=== PATIENT | female | born 1975 | race African-American/Black ===

== ENCOUNTER 2021-02-21 10:49 | Emergency (ER) | payer BC ==
[~2021-02-21] VITALS: Ht 167.6 cm; Wt 65.0 kg
--- NOTE | 2021-02-21 15:03 | PHYS DOC ---
General Adult EDM: Chief Complaint: NAUSEA/VOMITING/DIARRHEA HPI: HPI: Patient is a 45 year old female patient here with generalized abdominal pain, nausea and vomiting. She denies constipation or diarrhea. She denies urinary symptoms. She denies fevers or chills. She reports mid low back pain. She denies any radiation of pain, numbness, tingling. She denies stool or bladder incontinence. She denies any fall, trauma, injury. She denies any focal abdominal pain. She denies hematemesis. She denies melena or hematochezia. She denies bowel habit changes. No previous abdominal surgeries. The back pain is worse with movement. The back pain seemed to worsen after retching and vomiting for prolonged periods of time, beginning this morning. She denies chest pain, cough, dyspnea. She is fully vaccinated against COVID-19. She denies any recent sick contacts, travel history, antibiotics. No previous history of bowel obstruction. No history of similar chronic symptoms. Review of Systems: Review of Systems: Constitutional: Denies fever or chills. [] Eyes: Denies change in visual acuity. [] HENT: Denies nasal congestion or sore throat. [] Respiratory: Denies cough or shortness of breath. [] Cardiovascular: Denies chest pain or edema. [] GI: Generalized abdominal pain, nausea, vomiting. Denies bowel habit changes, denies melena or hematochezia. Denies hematemesis. : Denies urinary symptoms. Musculoskeletal: Low back pain. Integument: Denies rash. [] Neurologic: Denies headache, focal weakness or sensory changes. [] Endocrine: Denies polyuria or polydipsia. [] Lymphatic: Denies swollen glands. [] Psychiatric: Denies depression or anxiety. [] Heart Score: C/O Chest Pain: No Risk Factors: Risk Factors: DM, Current or recent (<one month) smoker, HTN, HLP, family history of CAD, obesity. Risk Scores: Score 0 - 3: 2.5% MACE over next 6 weeks - Discharge Home Score 4 - 6: 20.3% MACE over next 6 weeks - Admit for Clinical Observation Score 7 - 10: 72.7% MACE over next 6 weeks - Early Invasive Strategies Physical Exam: PE: Constitutional: Well developed, well nourished, no acute distress, non-toxic appearance. [] HENT: Normocephalic, atraumatic, mucous membranes are moist Eyes: Sclera are nonicteric Neck: Normal range of motion, no tenderness, supple, no stridor. [] Cardiovascular:Heart rate regular rhythm, 2 radial and +2 posterior tibial pulses bilaterally, warm and well-perfused, no peripheral edema Lungs & Thorax: Bilateral breath sounds clear to auscultation [] Abdomen: Abdomen is soft, nondistended, nonfocally tender to palpation in the periumbilical area. Normal bowel sounds. No focal right lower quadrant or left lower quadrant tenderness. Mild voluntary guarding, no rebound tenderness. No palpable masses organomegaly. No right upper quadrant tenderness, negative Stephens's. No CVA tenderness. No flank or abdominal ecchymoses. Skin: Warm, dry, no erythema, no rash. No jaundice. Back: No tenderness, no CVA tenderness. [] Extremities: No tenderness, no cyanosis, no clubbing, ROM intact, no edema. [] Neurologic: Alert and oriented X 3, normal motor function, normal sensory function, no focal deficits noted. [] Psychologic: Affect normal, judgement normal, mood normal. [] EKG: EKG: [] Radiology/Procedures: Radiology/Procedures: IMAGING REPORT Signed PATIENT: CATY TOLBERTACCOUNT: [id number] : 1975 LOCATION: ER AGE: 45 SEX: F EXAM STATUS: REG ER ORD. PHYSICIAN: BONITA LÓPEZ DO REASON: abd pain, n/v PROCEDURE: CT ABD PELV W/ IV CONTRST ONLY Exam: CT of abdomen and pelvis with contrast INDICATION: Abdominal pain, nausea and vomiting TECHNIQUE: Sequential axial images through the abdomen and pelvis obtained follo wing the administration of 75 mL of Isovue-370 IV contrast. Sagittal and coronal reformatted images were reconstructed from the axial data and reviewed. Exposure: One or more of the following in the visualized dose reduction techniques were utilized for this examination: 1. Automated exposure control 2. Adjustment of the MA and/or KV according to patient size 3. Use of iterative of reconstructive technique Comparisons: None FINDINGS: Heart size is normal. No pericardial effusion. Strandy opacities the dependent portion lungs likely representing atelectasis. No pleural effusion. Liver, spleen, pancreas, gallbladder and adrenals are unremarkable. No perinephric inflammation or hydronephrosis. No renal or ureteral calculi are identified. Bladder is partially distended and not well evaluated. Uterus is enlarged with echo enhancing myometrial lesion likely related to fibroid. No abnormal adnexal mass. Large and small bowel are unremarkable. Appendix is normal. No free intra- abdominal air or fluid. No obstruction. Abdominal aorta has a normal course and caliber. Abdominal vasculature is patent. No enlarged intra-abdominal lymph nodes are identified. IMPRESSION: 1. No acute process identified in the abdomen or pelvis. 2. Fibroid uterus. Electronically signed by: Yoly Pham MD (02/21/2021 6:36 PM) [facility] DICTATED and SIGNED BY: YOLY PHAM MD DATE: 02/21/21 [id number] 0 Course & Med Decision Making: Course & Med Decision Making Pertinent Labs and Imaging studies reviewed. (See chart for details) The patient is given 2 L of IV fluids, IV Zofran, IV morphine. She is resting comfortably. She has a benign, nonsurgical abdominal exam. No further nausea and vomiting reported here. CT imaging is unremarkable for any acute life- threatening or surgical process. Laboratory evaluation is otherwise unrema rkable. I have discussed the findings, differential diagnosis and plan of care with her. She feels comfortable with the plan for discharge. She will be discharged home with a small amount of pain medicine and antiemetics to use as needed. She is to eat a bland diet, drink plenty of clear fluids. Strict return precautions are given. She verbalizes understanding and is comfortable with the plan of care. Chris Disclaimer: Chris Disclaimer: This electronic medical record was generated, in whole or in part, using a voice recognition dictation system. Departure Departure Impression: Primary Impression: Nausea and vomiting Additional Impressions: Generalized abdominal pain Low back pain Disposition: HOME / SELF CARE / HOMELESS Condition: STABLE Patient Instructions: Abdominal Pain (Nonspecific), Back Pain, Adult, Nausea and Vomiting Additional Instructions: Use the medication as needed/as directed. Eat a bland diet, drink clear fluids. Return to the ER for uncontrolled vomiting, vomiting blood, dehydration, more severe localized abdominal pain or for any other concerns. Follow-up with your primary care physician. Scripts Hydrocodone Bit/Acetaminophen (HYDROCODONE-APAP 5-325 ) 1 Tab Tablet 1 TAB PO PRN Q6HRS PRN for PAIN, #10 TAB 0 Refills Prov: BONITA LÓPEZ DO 02/21/21 Ondansetron Hcl (ONDANSETRON HCL) 4 Mg Tablet 1 TAB PO PRN Q6HRS for vomiting, #20 TAB 1 Refill Prov: BONITA LÓPEZ DO 02/21/21 BONITA LÓPEZ DO Feb 21, 2021 15:03
[2021-02-21 15:23] LABS: BILIRUBIN,URINE NEGATIVE (NEG); CLARITY,URINE CLEAR; COLOR,URINE YELLOW; NITRITE,URINE NEGATIVE (NEG); PROTEIN,URINE NEGATIVE (NEG-TRACE); UROBILINOGEN,URINE 0.2 mg/dL (0.2 mg/dL)
[2021-02-21 15:28] LABS: U PREG PATIENT NEGATIVE (NEG)
[2021-02-21 15:33] LABS: BACTERIA,URINE 0 /HPF (0-FEW); RBC,URINE 0 /HPF (0-2); WBC,URINE OCC /HPF (0-4)
[2021-02-21] MEDS: MORPHINE SULFATE 4 MG/ML INJ. IVP ONE (16:09)
[2021-02-21] MEDS: IV NORMAL SALINE 1000ML BAG 1,000 ML IV ONE ×2 (16:09)
[2021-02-21] MEDS: ONDANSETRON PF 4 MG/2 ML VIAL. IVP ONE (16:09)
[2021-02-21 16:10] LABS: BASO % 0 % (0-3); EOS % 0 % (0-3); HEMATOCRIT 37.6 % (36.0-47.0); HEMOGLOBIN 12.9 g/dL (12.0-15.5); LYMPH # 0.3 x10^3/uL (1.0-4.8); LYMPH % 4 % (24-48); MEAN CORPUSCULAR HEMOGLOBIN 32 pg (25-35); MEAN CORPUSCULAR HGB CONC 34 g/dL (31-37); MEAN CORPUSCULAR VOLUME 93 fL (79-100); MONO # 1.1 x10^3/uL (0.0-1.1); MONO % 15 % (0-9); NEUT # 5.8 x10^3/uL (1.8-7.7); NEUT % 81 % (31-73); PLATELET COUNT 200 x10^3/uL (140-400); RED BLOOD COUNT 4.04 x10^6/uL (3.50-5.40); WHITE BLOOD COUNT 7.2 x10^3/uL (4.0-11.0)
[2021-02-21 16:20] LABS: CALCIUM 8.6 mg/dL (8.5-10.1); CREATININE 0.9 mg/dL (0.6-1.0); GFR 81.9; POTASSIUM 3.8 mmol/L (3.5-5.1)
[2021-02-21 16:27] LABS: ALBUMIN 3.8 g/dL (3.4-5.0); TOTAL BILIRUBIN 0.3 mg/dL (0.2-1.0); TOTAL PROTEIN 7.8 g/dL (6.4-8.2)
[2021-02-21 16:38] LABS: % LYMPHS 7 % (24-48); % MONOS 12 % (0-10); % SEGS 81 % (35-66); PLT ESTIMATE ADEQUATE (ADEQUATE)
[2021-02-21] MEDS ORDERED: IOHEXOL 300 MG/ML 100ML VIAL. IV ONE (17:15)
[2021-02-21] MEDS ORDERED: CONTRAST GIVEN. MC PRN (17:15)
[2021-02-21 18:30] VITALS: BP 95/65
--- NOTE | 2021-02-21 18:38 | RAD ---
Exam: CT of abdomen and pelvis with contrast INDICATION: Abdominal pain, nausea and vomiting TECHNIQUE: Sequential axial images through the abdomen and pelvis obtained following the administrati on of 75 mL of Isovue-370 IV contrast. Sagittal and coronal reformatted images were reconstructed fro m the axial data and reviewed. Exposure: One or more of the following in the visualized dose reduction techniques were utilized for this examination: 1. Automated exposure control 2. Adjustment of the MA and/or KV according to patient size 3. Use of iterative of reconstructive technique Comparisons: None FINDINGS: Heart size is normal. No pericardial effusion. Strandy opacities the dependent portion lungs likely r epresenting atelectasis. No pleural effusion. Liver, spleen, pancreas, gallbladder and adrenals are unremarkable. No perinephric inflammation or hydronephrosis. No renal or ureteral calculi are identified. Bladder is partially distended and not well evaluated. Uterus is enlarged with echo enhancing myometr ial lesion likely related to fibroid. No abnormal adnexal mass. Large and small bowel are unremarkable. Appendix is normal. No free intra-abdominal air or fluid. No obstruction. Abdominal aorta has a normal course and caliber. Abdominal vasculature is patent. No enlarged intra-abdominal lymph nodes are identified. IMPRESSION: 1. No acute process identified in the abdomen or pelvis. 2. Fibroid uterus. Electronically signed by: Yoly Alston MD (02/21/2021 6:36 PM) [facility] [place]
[2021-02-21] MEDS ORDERED: HYDR-2761 PO (18:52)
[2021-02-21] MEDS ORDERED: ONDA-84 PO (18:52)
== END 2021-02-21 19:23 | disposition home or self-care (01) ==
LOC: ER 10:49
DX: D25.9 Leiomyoma of uterus, unspecified (principal); R11.2 Nausea with vomiting, unspecified; R10.84 Generalized abdominal pain; M54.50 Low back pain, unspecified
CPT/HCPCS: 36415; 74177; 80053; 81001; 81025; 83690; 85007; 85025; 96361; 96374; 96375; 99285; J2270; J2405; J7030